=== PATIENT | male | born 1970 | race Caucasian/White ===

== ENCOUNTER 2022-04-12 19:43 | Emergency (ER) | payer OTHER ==
[~2022-04-12] VITALS: Ht 177.8 cm; Wt 88.6 kg
[2022-04-12 19:44] VITALS: BP 155/103
[2022-04-12] MEDS ORDERED: LISI10TA22 PO (19:52)
[2022-04-12] MEDS ORDERED: BACITRACIN OINTMENT 30GM TUBE TOP PRN (21:50)
[2022-04-12] MEDS ORDERED: AMOX875T2 PO (21:58)
[2022-04-12] MEDS ORDERED: AUGMENTIN 875 MG TAB PO ONE (22:05)
[2022-04-12] MEDS ORDERED: IBUPROFEN 600MG TAB PO ONE (22:10)
== END 2022-04-12 23:32 | disposition home or self-care (01) ==
LOC: M ED 19:43
DX: S41.111A Laceration without foreign body of right upper arm, initial encounter (principal); S41.112A Laceration without foreign body of left upper arm, initial encounter; S61.432A Puncture wound without foreign body of left hand, initial encounter; S61.431A Puncture wound without foreign body of right hand, initial encounter; W54.0XXA Bitten by dog, initial encounter; Y93.89 Activity, other specified; Z88.1 Allergy status to other antibiotic agents